=== PATIENT | female | born 1985 | race Caucasian/White ===

== ENCOUNTER 2021-02-28 10:39 | Outpatient (CLI) | payer MEDICAID ==
--- NOTE | 2021-02-28 13:47 | XRAY Report ---
PROCEDURE: Hand 3 View RT INDICATIONS: PAIN IN RIGHT HAND TECHNIQUE: 3 views of the hand(s) acquired. COMPARISON: None FINDINGS: Bones: No fractures or dislocations. No suspicious bony lesions. Soft tissues: No suspicious soft tissue calcifications. IMPRESSION: Normal right hand Reviewed by: Tereso Gant on 02/28/2021 1:46 PM PDT Approved by: Tereso Gant on 02/28/2021 1:46 PM PDT Station ID: [id number]
== END 2021-02-28 10:40 | disposition home or self-care (01) ==
LOC: DI.S 10:39
PROVIDERS: ATTEND Physician Assistant
DX: M79.641 Pain in right hand (principal)

== ENCOUNTER 2021-06-20 08:00 | Outpatient (CLI) | payer MEDICAID | END 2021-06-20 23:59 | LOC: LAB.S 08:00 | PROVIDERS: ATTEND Emergency Medicine | DX: R05.9 Cough, unspecified (principal); Z20.822 Contact with and (suspected) exposure to COVID-19 ==